=== PATIENT | female | born 1960 | race Caucasian/White ===

== ENCOUNTER → 2021-07-23 | Outpatient (CLI) | payer OTHER ==
--- NOTE | 2021-07-23 15:41 | Diagnostic Imaging Report ---
INDICATION: Left ankle pain. TIME OF EXAM: 03:02 p.m. TECHNIQUE: Three views of the left ankle were obtained. FINDINGS: Alignment is normal. Ankle mortise is well maintained. Talar dome is smooth. No fracture or dislocation is identified. There is a large plantar calcaneal spur. IMPRESSION: No acute bony abnormality is detected. Dictated by: Dictated on workstation # [id number]
== END ==
LOC: RAD 14:34
PROVIDERS: ATTEND Nurse Practitioner Family
DX: M25.572 Pain in left ankle and joints of left foot (principal); M25.472 Effusion, left ankle
CPT/HCPCS: 73610

== ENCOUNTER 2022-08-20 19:15 | Emergency (ER) | payer OTHER ==
[~2022-08-20] VITALS: Ht 162.6 cm; Wt 86.0 kg
[2022-08-20 19:46] LABS: BASOPHILS # (AUTO) 0.1 10^3/uL (0.0-0.1); BASOPHILS % (AUTO) 1 % (0-10); EOSINOPHILS # (AUTO) 0.2 10^3/uL (0.0-0.3); EOSINOPHILS % (AUTO) 2 % (0-10); HEMATOCRIT 39 % (35-52); HEMOGLOBIN 12.7 g/dL (11.5-16.0); LYMPHOCYTES # (AUTO) 2.7 10^3/uL (1.0-4.0); LYMPHOCYTES % (AUTO) 28 % (12-44); MEAN CORPUSCULAR HEMOGLOBIN 29 pg (25-34); MEAN CORPUSCULAR HGB CONC 33 g/dL (32-36); MEAN CORPUSCULAR VOLUME 89 fL (80-99); MEAN PLATELET VOLUME 9.9 fL (9.0-12.2); MONOCYTES # (AUTO) 0.7 10^3/uL (0.0-1.0); MONOCYTES % (AUTO) 7 % (0-12); NEUTROPHILS # (AUTO) 5.9 10^3/uL (1.8-7.8); NEUTROPHILS % (AUTO) 61 % (42-75); PLATELET COUNT 325 10^3/uL (130-400); WHITE BLOOD COUNT 9.6 10^3/uL (4.3-11.0)
[2022-08-20 19:53] LABS: INR 0.9 (0.8-1.4)
[2022-08-20 20:02] LABS: ALBUMIN 4.2 GM/DL (3.2-4.5); BILIRUBIN,TOTAL 0.2 MG/DL (0.1-1.0); CALCIUM 9.6 MG/DL (8.5-10.1); CREATININE SERUM 0.93 MG/DL (0.60-1.30); MAGNESIUM 1.9 MG/DL (1.6-2.4); POTASSIUM 3.8 MMOL/L (3.6-5.0); TOTAL PROTEIN 7.3 GM/DL (6.4-8.2)
--- NOTE | 2022-08-20 20:20 | ED General ---
General Chief Complaint: Cardiac/General Problems Stated Complaint: SOB Nursing Triage Note: TO ED VIA POV AND AMBULATORY TO ROOM 9 WITH C/O HEART PALPITATIONS AND SOA TODAY. AFTER WORK TONIGHT HAD LEFT ARM AND FINGER TINGLING. DENIES CP. Source of Information: Patient Exam Limitations: No Limitations History of Present Illness Date Seen by Provider: Aug 20, 2022 Time Seen by Provider: 19:31 Initial Comments 62-year-old woman presents to the emergency room with vague complaints of palpitations and a sensation of shortness of air without any respiratory distress. She denies cough or fever. She complained of some vague left forearm and hand numbness and tingling without any focal neurologic deficits. She is diabetic but does not check her blood sugars. She had COVID-19 in July. She has mild hypertension and signs are otherwise unremarkable. Patient remarks that she feels palpitations during my interview, yet there are no PVCs or ab normalities on telemetry. Allergies and Home Medications Allergies Coded Allergies: acetaminophen (Verified Allergy, Unknown, 08/20/22) "FLU LIKE SYMPTOMS" hydrocodone (Verified Allergy, Unknown, 08/20/22) "FLU LIKE SYMPTOMS" Patient Home Medication List Home Medication List Reviewed: Yes Review of Systems Review of Systems Constitutional: no symptoms reported EENTM: no symptoms reported Respiratory: see HPI Cardiovascular: see HPI Gastrointestinal: no symptoms reported Genitourinary: no symptoms reported : No Musculoskeletal: no symptoms reported Skin: no symptoms reported Psychiatric/Neurological: See HPI Hematologic/Lymphatic: No Symptoms Reported Immunological/Allergic: no symptoms reported Past Ivxixsg-Jabomj-Ggkbpi Hx Patient Social History Tobacco Use?: No Substance use?: No Alcohol Use?: Yes Alcohol Frequency: Rarely Immunizations Up To Date Influenza Vaccine Up-to-Date: No; Not Current 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 oz. 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 Norm as Tested Skin: Normal Color, Warm/Dry Progress/Results/Core Measures Suspected Sepsis SIRS Temperature: Pulse: 90 Respiratory Rate: 20 Laboratory Tests 08/20/22 19:30: White Blood Count 9.6 Blood Pressure 152 /85 Mean: 107 Laboratory Tests 08/20/22 19:30: Creatinine 0.93, INR Comment 0.9, Platelet Count 325, Total Bilirubin 0.2 Results/Orders Lab Results Laboratory Tests Test 08/20/22 19:30 Range/Units White Blood Count 9.6 4.3-11.0 10^3/uL Red Blood Count 4.34 3.80-5.11 10^6/uL Hemoglobin 12.7 11.5-16.0 g/dL Hematocrit 39 35-52 % Mean Corpuscular Volume 89 80-99 fL Mean Corpuscular Hemoglobin 29 25-34 pg Mean Corpuscular Hemoglobin Concent 33 32-36 g/dL Red Cell Distribution Width 14.1 10.0-14.5 % Platelet Count 325 130-400 10^3/uL Mean Platelet Volume 9.9 9.0-12.2 fL Immature Granulocyte % (Auto) 1 % Neutrophils (%) (Auto) 61 42-75 % Lymphocytes (%) (Auto) 28 12-44 % Monocytes (%) (Auto) 7 0-12 % Eosinophils (%) (Auto) 2 0-10 % Basophils (%) (Auto) 1 0-10 % Neutrophils # (Auto) 5.9 1.8-7.8 10^3/uL Lymphocytes # (Auto) 2.7 1.0-4.0 10^3/uL Monocytes # (Auto) 0.7 0.0-1.0 10^3/uL Eosinophils # (Auto) 0.2 0.0-0.3 10^3/uL Basophils # (Auto) 0.1 0.0-0.1 10^3/uL Immature Granulocyte # (Auto) 0.1 0.0-0.1 10^3/uL Prothrombin Time 12.0 L 12.2-14.7 SEC INR Comment 0.9 0.8-1.4 Activated Partial Thromboplast Time 28 24-35 SEC Sodium Level 139 135-145 MMOL/L Potassium Level 3.8 3.6-5.0 MMOL/L Chloride Level 102 98-107 MMOL/L Carbon Dioxide Level 26 21-32 MMOL/L Anion Gap 11 5-14 MMOL/L Blood Urea Nitrogen 15 7-18 MG/DL Creatinine 0.93 0.60-1.30 MG/DL Estimat Glomerular Filtration Rate 70 BUN/Creatinine Ratio 16 Glucose Level 143 H 70-105 MG/DL Calcium Level 9.6 8.5-10.1 MG/DL Corrected Calcium 9.4 8.5-10.1 MG/DL Magnesium Level 1.9 1.6-2.4 MG/DL Total Bilirubin 0.2 0.1-1.0 MG/DL Aspartate Amino Transf (AST/SGOT) 21 5-34 U/L Alanine Aminotransferase (ALT/SGPT) 20 0-55 U/L Alkaline Phosphatase 136 40-136 U/L Myoglobin 24.1 10.0-92.0 NG/ML Troponin I < 0.028 <0.028 NG/ML Total Protein 7.3 6.4-8.2 GM/DL Albumin 4.2 3.2-4.5 GM/DL Influenza Type A (RT-PCR) Not Detected Not Detecte Influenza Type B (RT-PCR) Not Detected Not Detecte SARS-CoV-2 RNA (RT-PCR) Not Detected Not Detecte My Orders Orders - DENISE ALMONTE MD Covid 19 Inhouse Test (08/20/22 19:23) Influenza A And B By Pcr (08/20/22 19:23) Ekg Tracing (08/20/22 19:28) Monitor-Rhythm Ecg Trace Only (08/20/22 19:28) Ekg Tracing (08/20/22 19:29) Cbc With Automated Diff (08/20/22 19:38) Magnesium (08/20/22 19:38) Chest 1 View, Ap/Pa Only (08/20/22 19:38) Comprehensive Metabolic Panel (08/20/22 19:38) Myoglobin Serum (08/20/22 19:38) Protime With Inr (08/20/22 19:38) Partial Thromboplastin Time (08/20/22 19:38) O2 (08/20/22 19:38) Ed Iv/Invasive Line Start (08/20/22 19:38) Troponin I Mar[place]uy (08/20/22 19:38) Vital Signs/I&O 08/20/22 08/20/22 08/20/22 19:24 19:24 21:28 Temp 36.9 Pulse 90 75 Resp 20 14 B/P (MAP) 152/85 (107) 98/66 Pulse Ox 95 98 O2 Delivery Room Air Room Air Room Air Capillary Refill : Less Than 3 Seconds Blood Pressure Mean: 107 Progress Note : Progress Note Work-up was unremarkable. Patient was reexamined and found to have no focal neurologic deficits. She was feeling improved without any particular treatment. See discharge instructions for further discussion. ECG Initial ECG Impression Date: Aug 20, 2022 Initial ECG Impression Time: 19:30 Initial ECG Rate: 76 Initial ECG Rhythm: Normal Sinus Initial ECG Intervals: Normal Initial ECG Impression: Normal Comment Normal sinus rhythm with no ST elevation or depression. No abnormal intervals or axis deviation. Diagnostic Imaging Diagonstic Imaging: Xray Plain Films/CT/US/NM/MRI: chest Comments Chest x-ray viewed by me and report reviewed. See report below: NAME: [facility] REC#: [id number] PT STATUS: DEP ER : 1960 PHYSICIAN: DENISE ALMONTE MD ADMIT DATE: 08/20/22/ER Signed Date of Exam:08/20/22 CHEST 1 VIEW, AP/PA ONLY INDICATION: Palpitation and dyspnea. EXAMINATION: AP view of the chest was obtained. COMPARISON: No previous study is available for comparison at this time. FINDINGS: Heart size and pulmonary vasculature are within normal limits, and the lungs are clear, bilaterally. IMPRESSION: Unremarkable chest. Dictated by: Dictated on workstation # [id number] Dict: 08/20/222031 Trans: 08/20/222205 [id number] Interpreted by: TREVER AYON MD Electronically signed by: TREVER AYON MD 08/20/226 Departure Impression Primary Impression: Palpitations Additional Impressions: Dyspnea Qualified Codes: R06.00 - Dyspnea, unspecified Paresthesia Disposition: HOME, SELF-CARE Condition: Improved Departure-Patient Inst. Decision time for Depature: 21:24 Patient Instructions: Palpitations ED, Paresthesia (DC) Add. Discharge Instructions: The exact cause of your symptoms is uncertain based on your ER visit. Your work-up in the emergency room was unremarkable. If you have worsening symptoms, please return to care, especially if you develop more severe symptoms such as chest pain, fevers, worsening shortness of breath, etc. If you have recurrent symptoms, please follow-up with your primary care provider for further evaluation. All discharge instructions reviewed with patient and/or family. Voiced understanding. Copy Copies To 1: GAVI CROWDER MD, JOSHUA T MD Aug 20, 2022 20:20
--- NOTE | 2022-08-20 20:37 | Diagnostic Imaging Report ---
INDICATION: Palpitation and dyspnea. EXAMINATION: AP view of the chest was obtained. COMPARISON: No previous study is available for comparison at this time. FINDINGS: Heart size and pulmonary vasculature are within normal limits, and the lungs are clear, bilaterally. IMPRESSION: Unremarkable chest. Dictated by: Dictated on workstation # [id number]
[2022-08-20 21:28] VITALS: BP 98/66
== END 2022-08-20 21:28 | disposition home or self-care (01) ==
LOC: EDUNIT# 19:15 → ER 19:18
DX: R00.2 Palpitations (principal); R06.00 Dyspnea, unspecified; R20.2 Paresthesia of skin; Z86.16 Personal history of COVID-19; Z20.822 Contact with and (suspected) exposure to COVID-19
CPT/HCPCS: 36415; 71045; 80053; 83735; 83874; 84484; 85025; 85610; 85730; 87636; 93005; 93041